=== PATIENT | female | born 1975 | race Caucasian/White ===

== ENCOUNTER 2022-02-26 10:27 | Outpatient (CLI) | payer OTHER, SELFPAY ==
--- NOTE | ~2022-02-26 | MR_ITS ---
EXAMINATION: MR brain/brain stem wo/w con DATE: 02/26/2022 15:36 INDICATION: Seizure disorder TECHNIQUE: Magnetic resonance imaging (MRI) of the brain and brainstem was performed without and with 15 mL Multihance intravenous contrast. Sequences included sagittal and axial T1-weighted SE, axial d iffusion-weighted FS SE, axial 3D SWAN, axial T2-weighted FLAIR Propeller, axial T2-weighted Propelle r, coronal T2-weighted FLAIR, and coronal T1-weighted 3D FSPGR. Postcontrast axial and sagittal and c oronal T1-weighted SE were obtained. Apparent diffusion coefficient (ADC) maps were created. . COMPARISON: None. FINDINGS: There are no areas of restricted diffusion to suggest acute infarction. No intracranial hemorrhage or abnormal intracranial mass lesion. There are no intraparenchymal signal abnormalities seen on the ot her pulse sequences. The ventricles are symmetric and normal in size. The bilateral hippocampi appear normal and symmetric. No evident montano matter heterotopias or other abnormal migrational abnormalitie s appreciated. There are no abnormal extra-axial fluid collections. Flow voids are seen in the cerebr al arteries on the T2-weighted sequences consistent with their expected patency. Visualized orbits an d soft tissues are unremarkable. There are no areas of abnormal enhancement on the post contrast imag es. IMPRESSION: 1. Normal brain MRI. Reviewed, dictated and finalized at location A. IMPRESSION: 1. Normal brain MRI.
--- NOTE | 2022-02-26 13:42 | WPDNEUROLOGY ---
Neurology EEG Report General Information Date of Study: 02/26/22 TEST eeg DIAGNOSIS Epilepsy CONDITION OF RECORDING awake drowsy and sleep EEG NUMBER [id number] CLINICAL HISTORY patient reports she started having seizures about 3 years ago and seem to be happening more frequently lately EEG DESCRIPTION basic resting occipital frequency consists of low to medium voltage 9 to 11 hertz per 2nd alpha posteriorly admixed with back and waning low-voltage 15 to 18 hertz per 2nd beta. Low-voltage beta activity seen diffusely during drowsiness. Bilateral symmetrical sleep activity seen during sleep photic stimulation produced normal drive. Hyperventilation not done. Non paroxysmal. Nonfocal. Nonlateralizing. IMPRESSION Normal record
[2022-02-26 15:08] LABS: Estimated Glomerular Filt Rate > 60
== END 2022-02-26 10:28 | disposition home or self-care (01) ==
PROVIDERS: Visit Provider Psychiatry & Neurology Neurology
DX: G40.909 Epilepsy, unspecified, not intractable, without status epilepticus (principal)
CPT/HCPCS: 70553; 95816; A9577